=== PATIENT | female | born 1960 | race Caucasian/White ===

== ENCOUNTER 2018-12-04 13:17 | Emergency (ER) | payer SELFPAY ==
[~2018-12-04] VITALS: Ht 154.9 cm; Wt 80.3 kg
[2018-12-04 14:05] VITALS: Ht 154.9 cm; Wt 80.3 kg
[2018-12-04 16:46] LABS: CALCIUM 9.5 mg/dL (8.5-10.1); CREATININE SERUM 1.1 mg/dL (0.6-1.0); POTASSIUM SERUM 3.3 mmol/L (3.5-5.1)
[2018-12-04 16:51] LABS: ALBUMIN 3.6 g/dL (3.4-5.0); BILIRUBIN TOTAL 0.6 mg/dL (0.20-1.00); TOTAL PROTEIN, SERUM 7.8 g/dL (6.4-8.2)
[2018-12-04 16:56] LABS: BASOPHIL % 0.4 % (0-2); PLATELET COUNT 377 x10^3mcL (130-400); RED CELL DISTRIBUTION WIDTH 14.2 % (11.5-14.5)
[2018-12-04 18:12] VITALS: BP 147/84
== END 2018-12-04 18:12 | disposition home or self-care (01) ==
LOC: ED 13:17
PROVIDERS: Emergency Medicine
DX: R42 Dizziness and giddiness (principal); I10 Essential (primary) hypertension
CPT/HCPCS: 36415

== ENCOUNTER 2019-02-01 07:05 | Emergency (ER) | payer MEDICAID ==
[~2019-02-01] VITALS: Ht 157.5 cm; Wt 78.0 kg
[2019-02-01 07:10] VITALS: Ht 157.5 cm; Wt 78.0 kg
[2019-02-01 09:21] VITALS: BP 144/82
== END 2019-02-01 09:21 | disposition home or self-care (01) ==
LOC: ED 07:05
DX: M25.511 Pain in right shoulder (principal); I10 Essential (primary) hypertension; F17.210 Nicotine dependence, cigarettes, uncomplicated